=== PATIENT | female | born 1960 | race American Indian/Alaskan Native ===

== ENCOUNTER 2021-10-27 13:57 | Outpatient (CLI) | payer OTHER | END 2021-10-27 13:58 | disposition home or self-care (01) | LOC: LABHHL 13:57 | PROVIDERS: ATTEND Otolaryngology | DX: J32.0 Chronic maxillary sinusitis (principal); J32.2 Chronic ethmoidal sinusitis; J32.1 Chronic frontal sinusitis | CPT/HCPCS: 88305; 88311 ==